=== PATIENT | female | born 1990 | race Caucasian/White ===

== ENCOUNTER 2018-11-22 00:58 | Emergency (ER) | payer MEDICAID, OTHER ==
[~2018-11-22] VITALS: Ht 154.9 cm; Wt 109.0 kg
--- NOTE | 2018-11-22 01:14 | ED.ADGEN ---
Past History Past Medical History: Other Smoking: Cigarettes Adult General Chief Complaint Chief Complaint ".. I worried..I might have strep... I was in here with my bosses kid...and they had strep test s that was negative.. but now I am sick.. and feel ... like I got strept...." HPI HPI Patient is a 28 year old female who presents with hx of fever, chills, sore throat and anterior cervical adenopathy x 3 days. Patient denies any history immunosuppression. 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 Patient has been ill last 3 days. No history immunosuppression. No recent History of oral sex. No travel. Patient does smoke. Review of Systems Review of Systems Constitutional: History of fever or chills [] Eyes: Denies change in visual acuity, redness, or eye pain [] HENT: History of nasal congestion and sore throat []. Cervical adenopathy Respiratory: Denies cough or shortness of breath [] Cardiovascular: No additional information not addressed in HPI [] GI: Denies abdominal pain, nausea, vomiting, bloody stools or diarrhea [] : Denies dysuria or hematuria [] Musculoskeletal: Denies back pain or joint pain [] Integument: Denies rash or skin lesions [] Neurologic: Denies headache, focal weakness or sensory changes [] Endocrine: Denies polyuria or polydipsia [] All other systems were reviewed and found to be within normal limits, except as documented in this note. Family History Family History Noncontributory Current Medications Current Medications Current Medications Medications (Trade) Dose Ordered Sig/Tariq Start Time Stop Time Status Last Admin Dose Admin Amoxicillin (Amoxil) 500 mg 1X ONCE 11/22/18 02:00 11/22/18 02:01 DC 11/22/18 02:17 500 MG Prednisone (Prednisone) 50 mg 1X ONCE 11/22/18 02:00 11/22/18 02:01 DC 11/22/18 02:17 50 MG Allergies Allergies Allergies Coded Allergies Type Severity Reaction Last Updated Verified codeine Allergy Intermediate Itching 11/22/18 Yes Physical Exam Physical Exam Constitutional: Moderate acute distress, non-toxic appearance. [] HENT: Normocephalic, atraumatic, bilateral external ears normal, oropharynx moist, anxious injected and red, some ulcers on tonsillar pillar area, no oral exudates, nose slightly swollen turbinates and clear rhinorrhea Eyes: PERRLA, EOMI, conjunctiva normal, no discharge. [] Neck: Normal range of motion, no tenderness, supple, no stridor. [] Cervical adenopathy anterior chains Cardiovascular:Heart rate regular rhythm, no murmur [] Lungs & Thorax: Bilateral breath sounds equal at apex with scattered wheezes on auscultation [] Abdomen: Bowel sounds normal, soft, no tenderness, no masses, no pulsatile masses. [] Obese Skin: Warm, dry, no erythema, no rash. [] Back: No tenderness, no CVA tenderness. [] Extremities: No tenderness, no cyanosis, no clubbing, ROM intact, no edema. [] Neurologic: Alert and oriented X 3, normal motor function, normal sensory function, no focal deficits noted. [] Psychologic: Affect normal, judgement normal, mood normal. [] Current Patient Data Vital Signs Vital Signs Date Time Temp Pulse Resp B/P (MAP) Pulse Ox O2 Delivery O2 Flow Rate FiO2 11/22/18 02:20 78 18 168/110 (129) 99 Room Air 11/22/18 00:58 98.6 Lab Results Laboratory Tests Test 11/22/18 01:15 Influenza Type A (Rapid) Negative (NEGATIVE) Influenza Type B (Rapid) Negative (NEGATIVE) Group A Streptococcus Rapid Positive (NEGATIVE) EKG EKG [] Radiology/Procedures Radiology/Procedures [] Course & Med Decision Making Course & Med Decision Making Pertinent Labs and Imaging studies reviewed. (See chart for details) Gargle with Listerine 4 times a day. And as needed. Tylenol and ibuprofen for pain discomfort. Push fluids. Take amoxicillin 500 mg 3 times a day. Follow-up primary care. Benadryl 25-50 mg 4 times daily may be helpful. Follow-up primary care. Return if any concerns. Patient encouraged to stop smoking. [] Final Impression Final Impression 1. Strep pharyngitis[] Dragon Disclaimer Dragon Disclaimer This electronic medical record was generated, in whole or in part, using a voice recognition dictation system. Discharge Summary Visit Information Final Diagnosis Problems Medical Problems: (1) Streptococcal pharyngitis Status: Acute Brief Hospital Course Allergies Allergies Coded Allergies Type Severity Reaction Last Updated Verified codeine Allergy Intermediate Itching 11/22/18 Yes Vital Signs Vital Signs Date Time Temp Pulse Resp B/P (MAP) Pulse Ox O2 Delivery O2 Flow Rate FiO2 11/22/18 02:20 78 18 168/110 (129) 99 Room Air 11/22/18 00:58 98.6 Lab Results Laboratory Tests Test 11/22/18 01:15 Influenza Type A (Rapid) Negative (NEGATIVE) Influenza Type B (Rapid) Negative (NEGATIVE) Group A Streptococcus Rapid Positive (NEGATIVE) Brief Hospital Course Ms. Campos is a 28 old female who presented with strept. pharyngitis Discharge Information Condition at Discharge: Improved, Stable Disposition/Orders: D/C to Home Dischare Medications Current Medications Prednisone (Prednisone) 50 mg 1X ONCE PO Last administered on 11/22/18at 02:17; Admin Dose 50 MG; Start 11/22/18 at 02:00; Stop 11/22/18 at 02:01; Status DC Amoxicillin (Amoxil) 500 mg 1X ONCE PO Last administered on 11/22/18at 02:17; Admin Dose 500 MG; Start 11/22/18 at 02:00; Stop 11/22/18 at 02:01; Status DC Active Scripts Active Amoxicillin 500 Mg Capsule 500 Mg PO TID 10 Days Sandie Disclaimer This chart was dictated in whole or in part using Voice Recognition software in a busy, high-work load, and often noisy Emergency Department environment. It may contain unintended and wholly unrecognized errors or omissions. JERRI CHRISTIANSON MD Nov 22, 2018 01:14
[2018-11-22] MEDS ORDERED: AMOX500C PO (01:47)
[2018-11-22] MEDS ORDERED: predniSONE 10 MG TABLET PO ONE (02:00)
[2018-11-22] MEDS ORDERED: AMOXICILLIN 250 MG CAPSULE PO ONE (02:00)
[2018-11-22 02:20] VITALS: BP 168/110
[2018-11-22 02:42] LABS: INFLUENZA A PATIENT NEGATIVE (NEGATIVE); INFLUENZA B PATIENT NEGATIVE (NEGATIVE)
== END 2018-11-22 02:20 | disposition home or self-care (01) ==
LOC: ER 00:58
DX: J02.0 Streptococcal pharyngitis (principal); B95.0 Streptococcus, group A, as the cause of diseases classified elsewhere; R59.0 Localized enlarged lymph nodes; F17.210 Nicotine dependence, cigarettes, uncomplicated; Z88.5 Allergy status to narcotic agent
CPT/HCPCS: 87804; 87880; 99284; J7512

== ENCOUNTER 2018-12-01 21:03 | Emergency (ER) | payer SELFPAY ==
[~2018-12-01] VITALS: Ht 154.9 cm; Wt 109.0 kg
[~2018-12-01 21:03] MED LIST: AMOX500C PO
[2018-12-01 21:19] VITALS: BP 146/100
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
[2018-12-01] MEDS ORDERED: MELO7.5T29 PO (21:51)
[2018-12-01] MEDS ORDERED: TRAM50TA PO (21:51)
--- NOTE | 2018-12-02 07:59 | RAD ---
Examination: KNEE LEFT 3V History: Pain, post hyperextension injury Comparison/Correlation: None Findings: Total 3 images of the left knee were obtained. Joint spaces are normal. No acute fracture or bony destruction. Soft tissues are unremarkable. No joint effusion. Impression: Normal left knee x-ray exam. Electronically signed by: Eric Wells MD (12/02/2018 7:56 AM) [facility]
== END 2018-12-01 22:02 | disposition home or self-care (01) ==
LOC: ER 21:03
DX: S89.82XA Other specified injuries of left lower leg, initial encounter (principal); I10 Essential (primary) hypertension; F17.210 Nicotine dependence, cigarettes, uncomplicated; Z88.5 Allergy status to narcotic agent; X50.9XXA Other and unspecified overexertion or strenuous movements or postures, initial encounter; Y93.89 Activity, other specified; Y92.89 Other specified places as the place of occurrence of the external cause; Y99.8 Other external cause status
CPT/HCPCS: 29505; 73562; 99284

== ENCOUNTER 2019-09-17 21:45 | Emergency (ER) | payer OTHER ==
[~2019-09-17] VITALS: Ht 167.6 cm; Wt 102.8 kg
[~2019-09-17 21:45] MED LIST changes: +MELO7.5T29 PO; +TRAM50TA PO
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
[2019-09-17 22:18] LABS: BILIRUBIN,URINE NEG (NEG); CLARITY,URINE CLEAR; COLOR,URINE YELLOW; GLUCOSE,URINE NEG (NEG); NITRITE,URINE NEG (NEG)
[2019-09-17 22:22] LABS: AMPHETAMINE/METHAMPHETAMINE NEG (NEG); BARBITURATES NEG (NEG); BENZODIAZEPINES NEG (NEG); CANNABINOIDS POS (NEG); COCAINE NEG (NEG); METHADONE NEG (NEG); OPIATES NEG (NEG); PHENCYCLIDINE NEG (NEG)
[2019-09-17 22:26] LABS: BACTERIA,URINE 0 /HPF (0-FEW); SQUAMOUS EPITHELIAL CELL,UR FEW /LPF
[2019-09-17] MEDS ORDERED: ONDANSETRON PF 4 MG/2 ML VIAL. IVP ONE (22:30)
[2019-09-17] MEDS ORDERED: IV RINGERS SOLUTION,LACTATED 1,000 ML IV SCH (22:30)
[2019-09-17] MEDS ORDERED: PNV1TABL78 PO (23:04)
[2019-09-17 23:14] LABS: BASO # 0.1 x10^3/uL (0.0-0.2); BASO % 0 % (0-3); EOS # 0.3 x10^3/uL (0.0-0.7); EOS % 2 % (0-3); HEMATOCRIT 39.9 % (36.0-47.0); HEMOGLOBIN 13.6 g/dL (12.0-15.5); LYMPH # 3.9 x10^3/uL (1.0-4.8); LYMPH % 30 % (24-48); MEAN CORPUSCULAR HEMOGLOBIN 34 pg (25-35); MEAN CORPUSCULAR HGB CONC 34 g/dL (31-37); MEAN CORPUSCULAR VOLUME 98 fL (79-100); MONO # 0.6 x10^3/uL (0.0-1.1); MONO % 5 % (0-9); NEUT # 8.5 x10^3uL (1.8-7.7); NEUT % 63 % (31-73); PLATELET COUNT 288 x10^3/uL (140-400); RED BLOOD COUNT 4.06 x10^6/uL (3.50-5.40); RED CELL DISTRIBUTION WIDTH 13.1 % (11.5-14.5); WHITE BLOOD COUNT 13.4 x10^3/uL (4.0-11.0)
[2019-09-17 23:23] LABS: CALCIUM 9.5 mg/dL (8.5-10.1); CREATININE 0.6 mg/dL (0.6-1.0); GFR 116.6
[2019-09-17 23:29] LABS: ALBUMIN 3.9 g/dL (3.4-5.0); DIRECT BILIRUBIN 0.1 mg/dL (0.0-0.2); TOTAL BILIRUBIN 0.3 mg/dL (0.2-1.0); TOTAL PROTEIN 6.9 g/dL (6.4-8.2)
--- NOTE | 2019-09-17 23:38 | RAD ---
EXAM: Pelvic sonogram. HISTORY: Pain. TECHNIQUE: Transabdominal and transvaginal sonographic imaging of the pelvis was performed. COMPARISON: None. FINDINGS: The uterus measures 10.0 x 6.2 x 5.0 cm. There is a single intrauterine gestational sac with pole and yolk sac. The crown-rump length is 1.2 cm, corresponding with a gestational age of 7 weeks and 4 days. The yolk sac and gestational sac are normal in configuration. No subchronic hematoma is seen. The heart rate is normal at 147 bpm. The ovaries are normal in size and demonstrate normal blood flow. There is no pelvic free fluid. IMPRESSION: Single intrauterine fetus with normal heart rate and gestational age based on ultrasound measurements of 7 weeks and 4 days. Electronically signed by: Morena Ovalle MD (09/17/2019 11:34 PM) [facility]
[2019-09-17] MEDS ORDERED: CEPH-264 PO (23:40)
[2019-09-18 01:05] VITALS: BP 121/83
[2019-09-18] MEDS: CEPHALEXIN 250 MG CAPSULE PO ONE ×2 (01:10→01:30)
[2019-09-20 20:07] LABS: CHLAMYDIA PROBE Negative (Negative)
== END 2019-09-18 01:10 | disposition home or self-care (01) ==
LOC: ER 21:45
DX: O26.891 Other specified pregnancy related conditions, first trimester (principal); O99.331 Smoking (tobacco) complicating pregnancy, first trimester; D72.828 Other elevated white blood cell count; R10.2 Pelvic and perineal pain; I10 Essential (primary) hypertension; F17.210 Nicotine dependence, cigarettes, uncomplicated; F12.90 Cannabis use, unspecified, uncomplicated; Z3A.01 Less than 8 weeks gestation of pregnancy; Z88.5 Allergy status to narcotic agent
CPT/HCPCS: 36415; 76817; 80048; 80076; 80307; 81001; 81025; 83690; 84702; 85025; 85610; 85730; 86592; 86703; 86705; 86709; 86803; 86900; 86901; 87340; 87491; 87591; 96361; 96374; 99284; J2405; J7120; Q0111